=== PATIENT | male | born 1945 | race Caucasian/White ===

== ENCOUNTER 2020-11-13 17:27 | Inpatient (IN) | payer OTHER ==
[~2020-11-13] VITALS: Ht 172.7 cm; Wt 72.6 kg
[~2020-11-13 17:27] MED LIST: ALPRAZOLAM0.5 MG PO; ASPIRIN325 MG PO; CORDARONE 200M200 MG PO; ELIQUIS 5 MG TAB5 MG PO; FUROSEMIDE20 MG PO; ISOSORBIDE MONO60 MG PO; LIPITOR TAB 2020 MG PO; LISINOPRIL20 MG PO; METOPROLOL SUCC25 MG PO; PLAVIX 75 MG TA75 MG PO; SPIRONOLACTONE25 MG PO; TIZANIDINE HCL4 M1 PO; TRAMADOL HCL50 MG PO
[2020-11-13] MEDS ORDERED: IRON325 M1 PO (21:50)
[2020-11-13] MEDS ORDERED: ENTRESTO 24 MG1 EACH PO (21:51)
[2020-11-13] MEDS ORDERED: BAYER CHEWABLE81 MG PO (21:51)
[2020-11-13] MEDS ORDERED: POTASSIUM CHLO10 MEQ PO (21:53)
[2020-11-13] MEDS ORDERED: PLAVIX75 MG PO (21:54)
[2020-11-13] MEDS ORDERED: IBUPROFEN600 MG PO (21:56)
--- NOTE | 2020-11-14 03:14 | NUR ---
2345: TELEMETRY CALLED TO REPORT PT HR SUDDENLY SPIKED TO 170'S 0000: DR MAYER NOTIFIED OF PT'S ELEVATED HR; DIGOXIN ORDERED AND ADMINISTERED 0025: NOTIFIED DR MAYER THAT PT HR HAD CLIMBED INTO 200'S; ORDERS RECEIVED TO ADMINSTER LIDOCAINE PER PROTOCOL 0040: SEE EMAR FOR MEDICATIONS ORDERED AND ADMINSTERED; DR MAYER AT BEDSIDE; ORDERED TO PREPARE FOR CARDIOVERSION 0054: 10MG ETOMIDATE ADMINISTERED, BP 66/48 (53), HR 158 0055: PT CARDIOVERTED TO PACED RHYTHM, HR 61 BP 88/61 (68) 0154: PT SITTING UP IN BED EATING SANDWICH, DRINKING PEPSI AND WATCHING WESTERNS ON TELEVISION; PT DENIES ANY DISCOMFORT 0155: ADMIODARONE DRIP DISCONTINUED 0300: PT RESTING IN BED WITH CALL DAWKINS IN REACH; HR PACED AT 63 BP 106/71 (80)
[2020-11-14 04:54] LABS: BUN/CREATININE RATIO 19 (0-10)
[2020-11-16 16:10] LABS: RED BLOOD COUNT 3.91 M/UL (4.20-5.50); WHITE BLOOD COUNT 10.5 K/UL (4.5-11.0)
[2020-11-17 02:17] LABS: HEMOGLOBIN 12.2 gm/dl (14.0-17.5); RED BLOOD COUNT 3.96 M/UL (4.20-5.50); WHITE BLOOD COUNT 11.4 K/UL (4.5-11.0)
[2020-11-17] MEDS ORDERED: BETAPACE 80MG T80 MG PO (11:45)
[2020-11-17] MEDS ORDERED: SYMBICORT 160-1 INHA INH (12:13)
[2020-11-17] MEDS ORDERED: SPIRIVA HANDIH18 MCG INH (12:13)
[2020-11-17] MEDS ORDERED: COMBIVENT RESPIM4 GM INH (12:44)
== END 2020-11-17 14:52 | disposition home or self-care (01) | DRG 309 ==
LOC: PROG CARE 20:16
PROVIDERS: Internal Medicine; ADMIT Internal Medicine
DX: I47.2 Ventricular tachycardia (principal); I50.22 Chronic systolic (congestive) heart failure; M48.54XA Collapsed vertebra, not elsewhere classified, thoracic region, initial encounter for fracture; I31.3 Pericardial effusion (noninflammatory); I42.0 Dilated cardiomyopathy; I11.0 Hypertensive heart disease with heart failure; Z20.822 Contact with and (suspected) exposure to COVID-19; I25.10 Atherosclerotic heart disease of native coronary artery without angina pectoris; I48.92 Unspecified atrial flutter; K21.9 Gastro-esophageal reflux disease without esophagitis; M48.061 Spinal stenosis, lumbar region without neurogenic claudication; M48.00 Spinal stenosis, site unspecified; I27.20 Pulmonary hypertension, unspecified; F17.290 Nicotine dependence, other tobacco product, uncomplicated; M54.16 Radiculopathy, lumbar region; I48.21 Permanent atrial fibrillation; I25.5 Ischemic cardiomyopathy; K27.9 Peptic ulcer, site unspecified, unspecified as acute or chronic, without hemorrhage or perforation; I25.2 Old myocardial infarction; Z98.61 Coronary angioplasty status; Z79.899 Other long term (current) drug therapy; Z99.81 Dependence on supplemental oxygen; Z79.01 Long term (current) use of anticoagulants; I08.3 Combined rheumatic disorders of mitral, aortic and tricuspid valves
CPT/HCPCS: ECHO; 36415; 70450; 71045; 72131; 80048; 82550; 82553; 83735; 84439; 84443; 84484; 85027; 93005; 93306; 97110-GP-CQ; 97162; 97530-GP-CQ; J1160; J2001; J3475; J7040; U0002

== ENCOUNTER → 2021-04-29 | Outpatient (CLI) | payer OTHER ==
[~2021-04-29] MED LIST changes: +BAYER CHEWABLE81 MG PO; +BETAPACE 80MG T80 MG PO; +COMBIVENT RESPIM4 GM INH; +ENTRESTO 24 MG1 EACH PO; +IBUPROFEN600 MG PO; +IRON325 M1 PO; +PLAVIX75 MG PO; +POTASSIUM CHLO10 MEQ PO; +SPIRIVA HANDIH18 MCG INH; +SYMBICORT 160-1 INHA INH
== END ==
LOC: CT 08:30
DX: I50.22 Chronic systolic (congestive) heart failure (principal); R06.02 Shortness of breath; R93.89 Abnormal findings on diagnostic imaging of other specified body structures
CPT/HCPCS: 36415; 82565; Q9967